=== PATIENT | female | born 1960 ===

== ENCOUNTER 2018-03-11 13:52 | Emergency (ER) | payer MEDICAID ==
[2018-03-11 14:08] VITALS: RESP 16; TEMP 97.9
[2018-03-11] MEDS ORDERED: Amoxicillin-Clav 875-125 mg Tab PO STA (15:25)
[2018-03-11] MEDS ORDERED: Albuterol 0.083% Inhal Sol (2.5 mg/3 mL) UD INH STA (15:25)
--- NOTE | 2018-03-11 15:37 | C.PDOC ---
History Of Present Illness 57 year old female patient with hx of IDDM comes in for evaluation of nasal congestion with left ear ache for the past 3 days. Patient reported she couldn' t sleep last night because she "can't breathe" due to the congestion. Patient states she took over the counter antihistamine with no improvements. Patient denies fever, chills, headache, dizziness, vertigo, ear discharge, sore throat, cough, and SOB. HPI: Influenza Time Seen by Provider: 03/11/18 14:02 Chief Complaint: Cough, Cold, Congestion History Per: Patient Exam Limitations: no limitations Onset/Duration Of Symptoms: Days, Gradual Symptoms include: nasal congestion, other (left ear ache; no vertigo, ear discharge, and chills). denies: fever, headache, sore throat, cough Past Medical History Reviewed: Historical Data, Nursing Documentation, Vital Signs Vital Signs: Last Vital Signs Temp 97.9 F 03/11/18 14:05 Pulse 87 03/11/18 14:05 Resp 16 03/11/18 14:05 BP 171/85 H 03/11/18 14:05 Pulse Ox 99 03/11/18 14:05 - Medical History PMH: Diabetes, HTN, Hypercholesterolemia Family History: States: Unknown Family Hx - Social History Hx Alcohol Use: No Hx Substance Use: No - Immunization History Hx Tetanus Toxoid Vaccination: No Hx Influenza Vaccination: No Hx Pneumococcal Vaccination: No Review Of Systems Except As Marked, All Systems Reviewed And Found Negative. Constitutional: Negative for: Fever, Chills, Other (headache) ENT: Positive for: Ear Pain (ear ache), Other (nasal congestion). Negative for : Ear Discharge, Throat Pain Respiratory: Negative for: Cough, Shortness of Breath Neurological: Negative for: Dizziness, Other (vertigo) Physical Exam - Physical Exam Appears: Well, Non-toxic, No Acute Distress Skin: Normal Color, Warm, Dry, No Rash, No Ecchymosis Head: Normacephalic Eye(s): bilateral: PERRL Ear(s): Bilateral: Normal Nose: No Flaring, Discharge (clear with L>R nasal congestion), Other ( tenderness over bilateral paranasal area L>R. No edmea, no erythema.) Oral Mucosa: Moist, No Drooling Tongue: Normal Appearing Lips: Normal Appearing Throat: No Erythema, No Drooling Neck: Trachea Midline, No Midline Cervical Tenderness, No Paracervical Tenderness, Supple, Other ((-) meningeal sign) Chest: Symmetrical, No Deformity, No Tenderness Cardiovascular: Rhythm Regular, No Murmur, No JVD Respiratory: No Decreased Breath Sounds, No Accessory Muscle Use, No Stridor, No Wheezing Gastrointestinal/Abdominal: Soft, No Tenderness, No Distention, No Guarding Back: No CVA Tenderness Extremity: Normal ROM, No Tenderness, No Deformity Neurological/Psych: Oriented x3, Normal Speech, Normal Motor, Normal Sensation, Normal Reflexes - ECG O2 Sat by Pulse Oximetry: 99 (RA) Pulse Ox Interpretation: Normal - Progress ED Course And Treament: Impression: 57 year old female with nasal congestion with ear ache. Plans: -- Albuterol -- Amoxicillin -- predniSONE On re-eval, pt is afebrile, hemodynamically stable. Non-toxic. Tolerate PO well in ED. PulseOx 99% on RA. ENT: (+) exam c/w acute siniusitis. Uvula midline, no edema. Neck: Supple, (-) JVD. Lungs: CTA B/L, BS equal B/L. Abd: Soft, non-tender. Neurologically intact.FSBS 150. Pt advised on course of ds. ref. to f/u with PMD, ENT In 2-3 days for re- evaluation. return to ED if any worsening or new changes. Disposition Counseled Patient/Family Regarding: Diagnosis, Need For Followup, Rx Given - Disposition Referrals: Stephanie Rice MD [Non-Staff] - Disposition: HOME/ ROUTINE Disposition Time: 15:49 Condition: STABLE Additional Instructions: Encourage fluids Take medication as prescribed Follow up with PMD in 2-3 days for re-evaluation. return if any worsening or new changes. Prescriptions: Amoxicillin/Clavulanate [Augmentin 875 MG-125 MG] 1 tab PO BID #14 tab Loratadine [Claritin] 10 mg PO DAILY #20 tab Prednisone [Deltasone] 40 mg PO DAILY #8 tablet Instructions: Sinusitis in Adults Forms: Pressy (Burmese) Print Language: WELSH - Clinical Impression Clinical Impression: Sinusitis - PA / ACCIDENT REPORT CLERK / Resident Statement / has reviewed & agrees with the documentation as recorded. - Scribe Statement The provider has reviewed the documentation as recorded by the Vicki Boyce Do All medical record entries made by the Pedroibodilia were at my direction and personally dictated by me. I have reviewed the chart and agree that the record accurately reflects my personal performance of the history, physical exam, medical decision making, and the department course for this patient. I have also personally directed, reviewed, and agree with the discharge instructions and disposition.
[2018-03-11] MEDS ORDERED: Amoxicillin-Clav 875-125 mg Tab PO ONE (15:41)
[2018-03-11] MEDS ORDERED: Albuterol 0.083% Inhal Sol (2.5 mg/3 mL) UD ONE (15:42)
[2018-03-11 16:12] VITALS: BP 156/85; PULSE 85; O2SAT 98
== END 2018-03-11 16:11 | disposition home or self-care (01) ==
LOC: C.ER 13:52
DX: J32.9 Chronic sinusitis, unspecified (principal); E11.9 Type 2 diabetes mellitus without complications; Z79.4 Long term (current) use of insulin

== ENCOUNTER 2018-04-24 07:41 | Observation (INO) | payer MEDICAID ==
[2018-04-24] MEDS ORDERED: Sodium Chloride 0.9% 500 ML IV ONE ×2 (08:14→08:35)
[2018-04-24 08:35] LABS: BASO # 0.1 K/uL (0.0-0.2); BASO % 0.9 % (0.0-2.0); EOS # 0.3 K/uL (0.0-0.7); EOS % 2.7 % (0.0-4.0); HEMOGLOBIN 11.5 g/dL (11.0-16.0); LYMPH # 1.7 K/uL (1.0-4.3); LYMPH % 16.5 % (20.0-40.0); MEAN CELL VOLUME 83.7 fL (81.0-99.0); MEAN CORPUSCULAR HGB CONC 34.6 g/dL (33.0-37.0); MEAN PLATELET VOLUME 9.3 fL (7.2-11.7); MONO # 0.6 K/uL (0.0-0.8); MONO % 5.7 % (0.0-10.0); NEUT # 7.8 K/uL (1.8-7.0); NEUT % 74.2 % (50.0-75.0); RBC 3.96 Mil/uL (3.80-5.20); RED CELL DISTRIBUTION WIDTH 13.6 % (11.5-14.5); WHITE BLOOD COUNT 10.5 K/uL (4.8-10.8)
[2018-04-24 08:52] LABS: SQUAMOUS EPITHIAL 1 /hpf (0-5); URINE BILIRUBIN NEGATIVE (NEGATIVE); URINE BLOOD 1+ (NEGATIVE); URINE CLARITY Clear (Clear); URINE COLOR Straw (YELLOW); URINE GLUCOSE (UA) 1+ mg/dL (Normal); URINE LEUKOCYTE ESTERASE NEG Leu/uL (Negative); URINE PROTEIN 2+ mg/dL (NEGATIVE); URINE UROBILINOGEN NORMAL mg/dL (0.2-1.0)
[2018-04-24 09:33] LABS: B-TYPE NATRIURETIC PEPTIDE 195 pg/mL (0-900)
[2018-04-24 09:34] LABS: ALB/GLOB RATIO 1.1 (1.0-2.1); ALT/SGPT 23 U/L (9-52); AST/SGOT 18 U/L (14-36); BLOOD UREA NITROGEN 26 mg/dL (7-17); CALCIUM 9.6 mg/dl (8.6-10.4); CK-MB 1.75 ng/mL (0.0-3.38); GFR NON-AFRICAN AMERICAN > 60; LIPASE 225 U/L (23-300)
--- NOTE | 2018-04-24 09:44 | RAD ---
Date of service: 04/24/2018 HISTORY: SOB COMPARISON: No prior. TECHNIQUE: Chest PA and lateral FINDINGS: LUNGS: Minor bibasilar atelectasis. PLEURA: No significant pleural effusion identified. No pneumothorax apparent. CARDIOVASCULAR: Cardiomegaly. OSSEOUS STRUCTURES: No significant abnormalities. VISUALIZED UPPER ABDOMEN: Normal. OTHER FINDINGS: None. IMPRESSION: Minor bibasilar atelectasis.
--- NOTE | 2018-04-24 10:04 | C.PDOC ---
History Of Present Illness 57 year old female PMHx significant for diabetes, hypertension, hyperlipidemia and anxiety presents to the ED complaining of mid-sternal chest pressure that started last night and worsened today. Associated with nasal congestion and 1 episode of vomiting. She was recently treated for a sinus infection on 03/11. Patient states she was prescribed two antibiotics at that time, but did not finish the entire course of either antibiotic secondary to elevated sugar. Patient had a stress test last year that was normal. Daughter at bedside is translating for patient. Denies sob, headache, neck pain, fever, visual changes , or abdominal pain. Time Seen by Provider: 04/24/18 07:45 Chief Complaint (Nursing): Shortness Of Breath History Per: Patient, Family (daughter translating for patient) History/Exam Limitations: no limitations Onset/Duration Of Symptoms: Days Quality: Pressure Associated Symptoms: Chest Pain Past Medical History Reviewed: Historical Data, Nursing Documentation, Vital Signs Vital Signs: Last Vital Signs Temp 97.7 F 04/24/18 16:00 Pulse 89 04/24/18 16:00 Resp 18 04/24/18 16:00 BP 180/90 H 04/24/18 16:00 Pulse Ox 100 04/24/18 16:00 - Medical History PMH: Diabetes, HTN, Hypercholesterolemia Other Surgeries: Tubal ligation Family History: States: Unknown Family Hx - Social History Hx Tobacco Use: No Hx Alcohol Use: No Hx Substance Use: No - Immunization History Hx Tetanus Toxoid Vaccination: No Hx Influenza Vaccination: No Hx Pneumococcal Vaccination: No Review Of Systems Except As Marked, All Systems Reviewed And Found Negative. Constitutional: Negative for: Fever Eyes: Negative for: Vision Change ENT: Positive for: Nose Congestion Cardiovascular: Positive for: Chest Pain. Negative for: Palpitations Respiratory: Negative for: Cough, Wheezing Gastrointestinal: Positive for: Vomiting. Negative for: Abdominal Pain, Diarrhea, Constipation, Other (GI bleed) Neurological: Negative for: Weakness, Numbness, Incoordination, Headache, Dizziness Physical Exam - Physical Exam Appears: Non-toxic, No Acute Distress, Other (anxious) Skin: Normal Color, Warm, Dry Head: Atraumatic, Normacephalic Eye(s): bilateral: Normal Inspection, EOMI Nose: Other (nasal congestion and paranasal sinus tenderness) Oral Mucosa: Moist Throat: Normal, No Erythema, No Exudate Neck: Normal ROM, Supple Chest: Symmetrical, Tenderness (mid-sternal tenderness on palpation) Cardiovascular: Rhythm Regular Respiratory: Normal Breath Sounds, No Rales, No Rhonchi, No Wheezing Gastrointestinal/Abdominal: Soft, Tenderness (to epigastrium), No Guarding, No Rebound Extremity: Normal ROM Extremity: Bilateral: Atraumatic, Normal Color And Temperature, Normal ROM Pulses: Left Dorsalis Pedis: Normal, Right Dorsalis Pedis: Normal Neurological/Psych: Oriented x3, Normal Speech, Normal Cognition, Other (No focal deficits) ED Course And Treatment - Laboratory Results Result Diagrams: 04/24/18 08:27 04/24/18 08:27 O2 Sat by Pulse Oximetry: 100 (RA) Pulse Ox Interpretation: Normal - Other Rad CXR X-Ray: Read By Radiologist Interpretation: Accession No. : [id number]. Patient Name / ID : ERASMO Florez / [id number]. Exam Date : 04/24/2018 08:23:35 ( Approved ). Study Comment : Sex / Age : F / 57Y. Creator : Minesh Issa MD. Dictator : Mini Shifter : Ad Setter : Minesh Issa MD. Approver2 : Report Date : 04/24/2018 09:43:16. My Comment : . Date of service: 04/24/2018. HISTORY : SOB. COMPARISON: No prior. TECHNIQUE: Chest PA and lateral. FINDINGS: LUNGS: Minor bibasilar atelectasis. PLEURA: No significant pleural effusion identified. No pneumothorax apparent. CARDIOVASCULAR: Cardiomegaly. OSSEOUS STRUCTURES: No significant abnormalities. VISUALIZED UPPER ABDOMEN: Normal. OTHER FINDINGS: None. IMPRESSION: Minor bibasilar atelectasis. Progress Note: Labs ordered including cardiac enzymes. Chest x-ray and EKG obtained. Administered IVF hydration. Labs reviewed. Case discussed with Dr. Ye, agreed upon plan and admission. Patient treated with Afrin spray and IV Rocephin. Disposition - Disposition Disposition: HOSPITALIZED Disposition Time: 12:00 Condition: STABLE - Clinical Impression Clinical Impression: Sinusitis, Chest pain - PA / C ARCHITECT / Resident Statement MD/DO has reviewed & agrees with the documentation as recorded. - Scribe Statement The provider has reviewed the documentation as recorded by the Scribe (Sandie Adhikari) All medical record entries made by the Scribe were at my direction and personally dictated by me. I have reviewed the chart and agree that the record accurately reflects my personal performance of the history, physical exam, medical decision making, and the department course for this patient. I have also personally directed, reviewed, and agree with the discharge instructions and disposition.
[2018-04-24] MEDS ORDERED: cefTRIAXone IV 1 gm in Dextros 50 ML IV ONE (10:49)
[2018-04-24] MEDS ORDERED: Oxymetazoline 0.05% Nasal Spray (30 ml) NS STA (10:50)
[2018-04-24] MEDS ORDERED: Oxymetazoline 0.05% Nasal Spray (30 ml) NS ONE (11:26)
--- NOTE | 2018-04-24 19:18 | CP.PCM.HP ---
History of Present Illness - History of Present Illness History of Present Illness: 67-year-old F with PMH of DM, HTN, HLD, anxiety presents to ED with C/oh midsternal chest pressure started last night. Also admits nasal congestion and one episode of vomiting. PMH of sinus infection on 03/11, prescribed 2 antibiotics at that time, admits did not finish the entire course. Translation done by Dr. Sakshi Jean OB/palpitation/abdominal pain/fever/dizziness/diarrhea / constipation headache. Past Patient History - Infectious Disease Hx of Infectious Diseases: None - Past Medical History & Family History Past Medical History?: Yes - Past Social History Smoking Status: Never Smoked - CARDIAC Hx Hypercholesterolemia: Yes Hx Hypertension: Yes - HEENT Hx Cataracts: Yes - ENDOCRINE/METABOLIC Hx Diabetes Mellitus Type 1: Yes - MUSCULOSKELETAL/RHEUMATOLOGICAL Hx Falls: No - PSYCHIATRIC Hx Substance Use: No - SURGICAL HISTORY Hx Tubal Ligation: Yes - ANESTHESIA Hx Anesthesia: Yes Hx Anesthesia Reactions: No Meds Allergies/Adverse Reactions: Allergies Allergy/AdvReac Type Severity Reaction Status Date / Time No Known Allergies Allergy Verified 04/24/18 07:53 Physical Exam - Constitutional Appears: Well - Head Exam Head Exam: ATRAUMATIC, NORMAL INSPECTION, NORMOCEPHALIC - Eye Exam Eye Exam: EOMI, Normal appearance, PERRL Pupil Exam: NORMAL ACCOMODATION, PERRL - ENT Exam ENT Exam: Mucous Membranes Moist, Normal Exam - Neck Exam Neck exam: Positive for: Normal Inspection - Respiratory Exam Respiratory Exam: Decreased Breath Sounds - Cardiovascular Exam Cardiovascular Exam: REGULAR RHYTHM, +S1, +S2 - GI/Abdominal Exam GI & Abdominal Exam: Diminished Bowel Sounds, Soft - Rectal Exam Rectal Exam: Deferred Results - Vital Signs Recent Vital Signs: Last Vital Signs Temp 97.7 F 04/24/18 16:00 Pulse 92 H 04/24/18 18:00 Resp 19 04/24/18 18:00 BP 154/76 H 04/24/18 18:00 Pulse Ox 100 04/24/18 18:06 - Labs Result Diagrams: 04/25/18 05:59 04/25/18 05:59 Labs: Laboratory Results - last 24 hr 04/24/18 04/24/18 04/24/18 08:17 08:27 08:27 WBC 10.5 RBC 3.96 Hgb 11.5 D Hct 33.1 L MCV 83.7 MCH 29.0 MCHC 34.6 RDW 13.6 Plt Count 300 MPV 9.3 Neut % (Auto) 74.2 Lymph % (Auto) 16.5 L Beckham % (Auto) 5.7 Eos % (Auto) 2.7 Baso % (Auto) 0.9 Neut # (Auto) 7.8 H Lymph # (Auto) 1.7 Beckham # (Auto) 0.6 Eos # (Auto) 0.3 Baso # (Auto) 0.1 Sodium 142 Potassium 4.6 Chloride 107 Carbon Dioxide 25 Anion Gap 15 BUN 26 H Creatinine 0.7 Est GFR ( Amer) > 60 Est GFR (Non-Af Amer) > 60 POC Glucose (mg/dL) 170 H Random Glucose 194 H Calcium 9.6 Total Bilirubin 0.3 AST 18 ALT 23 Alkaline Phosphatase 114 Total Creatine Kinase 188 H CK-MB (Mass) 1.75 Troponin I < 0.0120 NT-Pro-B Natriuret Pep 195 Total Protein 7.7 Albumin 4.0 Globulin 3.6 Albumin/Globulin Ratio 1.1 Lipase 225 Urine Color Urine Clarity Urine pH Ur Specific Allyn Urine Protein Urine Glucose (UA) Urine Ketones Urine Blood Urine Nitrate Urine Bilirubin Urine Urobilinogen Ur Leukocyte Esterase Urine WBC (Auto) Urine RBC (Auto) Ur Squamous Epith Cells 04/24/18 04/24/18 08:36 16:20 WBC RBC Hgb Hct MCV MCH MCHC RDW Plt Count MPV Neut % (Auto) Lymph % (Auto) Beckham % (Auto) Eos % (Auto) Baso % (Auto) Neut # (Auto) Lymph # (Auto) Beckham # (Auto) Eos # (Auto) Baso # (Auto) Sodium Potassium Chloride Carbon Dioxide Anion Gap BUN Creatinine Est GFR ( Amer) Est GFR (Non-Af Amer) POC Glucose (mg/dL) 143 H Random Glucose Calcium Total Bilirubin AST ALT Alkaline Phosphatase Total Creatine Kinase CK-MB (Mass) Troponin I NT-Pro-B Natriuret Pep Total Protein Albumin Globulin Albumin/Globulin Ratio Lipase Urine Color Straw Urine Clarity Clear Urine pH 7.0 Ur Specific Allyn 1.011 Urine Protein 2+ H Urine Glucose (UA) 1+ Urine Ketones Negative Urine Blood 1+ H Urine Nitrate Negative Urine Bilirubin Negative Urine Urobilinogen Normal Ur Leukocyte Esterase Neg Urine WBC (Auto) 6 H Urine RBC (Auto) 11 H Ur Squamous Epith Cells 1 Assessment & Plan (1) Chest pain Status: Acute (2) Sinusitis Status: Acute (3) Hyperglycemia Status: Acute (4) UTI (urinary tract infection) Status: Acute (5) Uncontrolled diabetes mellitus Status: Acute (6) Uncontrolled hypertension Status: Acute - Assessment and Plan (Free Text) Plan: Patient seen and examined bedside Chest x-ray: minor bibasilar atelectasis. Cardiomegaly. Labs: cardiac enzyme, CBC, CMP. EKG Stress test done last year- normal. Afrin spray IV Rocephin Other management as ordered
[2018-04-24] MEDS: Enoxaparin 40 mg Syringe SC SCH (20:36)
[2018-04-24 21:18] LABS: CK-MB 0.98 ng/mL (0.0-3.38)
[2018-04-24] MEDS ORDERED: Labetalol 25mg/5ml Syringe IVP PRN (21:46)
[2018-04-24] MEDS ORDERED: Metoprolol 1 mg/ml Inj IVP ONE (21:49)
[2018-04-24] MEDS: (Novolog) Insulin Aspart, Recombinant 100 u/ml 10 ml vial SC SCH (22:26)
[2018-04-25 06:07] LABS: HEMOGLOBIN 11.4 g/dL (11.0-16.0); MEAN CELL VOLUME 82.8 fL (81.0-99.0); MEAN PLATELET VOLUME 9.5 fL (7.2-11.7); RBC 3.93 Mil/uL (3.80-5.20); RED CELL DISTRIBUTION WIDTH 13.8 % (11.5-14.5); WHITE BLOOD COUNT 8.7 K/uL (4.8-10.8)
[2018-04-25 06:30] LABS: ALB/GLOB RATIO 1.1 (1.0-2.1); ALBUMIN 3.6 g/dL (3.5-5.0); ALT/SGPT 23 U/L (9-52); AST/SGOT 16 U/L (14-36); BLOOD UREA NITROGEN 20 mg/dL (7-17); CALCIUM 9.2 mg/dl (8.6-10.4); GFR NON-AFRICAN AMERICAN > 60
[2018-04-25] MEDS: (Novolog) Insulin Aspart, Recombinant 100 u/ml 10 ml vial SC SCH ×4 (08:26→22:08)
[2018-04-25] MEDS: Enoxaparin 40 mg Syringe SC SCH (10:24)
[2018-04-25] MEDS: Pantoprazole 40 mg EC Tab PO SCH (10:30)
[2018-04-25 18:33] VITALS: RESP 20
--- NOTE | 2018-04-25 19:23 | CP.PCM.PN ---
Subjective - Date & Time of Evaluation Date of Evaluation: 04/25/18 Time of Evaluation: 13:15 - Subjective Subjective: clinically same Objective - Vital Signs/Intake and Output Vital Signs (last 24 hours): Temp Pulse Resp BP Pulse Ox 98.4 F 90 20 107/68 97 04/25/18 15:06 04/25/18 17:56 04/25/18 15:06 04/25/18 17:56 04/25/18 15:06 Intake and Output: 04/25/18 04/26/18 18:59 06:59 Intake Total 1430 Output Total 950 Balance 480 - Medications Medications: Current Medications Amlodipine Besylate (Norvasc) 10 mg PO DAILY REPLACED BY [facility] Last Admin: 04/25/18 10:25 Dose: 10 mg Aspirin (Aspirin) 325 mg PO DAILY REPLACED BY [facility] Last Admin: 04/25/18 10:24 Dose: 325 mg Enoxaparin Sodium (Lovenox) 40 mg SC DAILY REPLACED BY [facility] Last Admin: 04/25/18 10:24 Dose: 40 mg Ceftriaxone Sodium 1 gm/ (Sodium Chloride) 100 mls @ 100 mls/hr IVPB Q24H REPLACED BY [facility] PRN Reason: Protocol Last Admin: 04/25/18 11:16 Dose: 100 mls/hr Insulin Aspart (Novolog) 0 unit SC ACHS REPLACED BY [facility] PRN Reason: Protocol Last Admin: 04/25/18 17:36 Dose: 1 u Labetalol HCl (Trandate) 200 mg PO TID REPLACED BY [facility] Last Admin: 04/25/18 17:53 Dose: 200 mg Pantoprazole Sodium (Protonix Ec Tab) 40 mg PO DAILY REPLACED BY [facility] Last Admin: 04/25/18 10:30 Dose: 40 mg - Labs Labs: 04/25/18 05:59 04/25/18 05:59 - Constitutional Appears: Well - Head Exam Head Exam: ATRAUMATIC, NORMAL INSPECTION, NORMOCEPHALIC - Eye Exam Eye Exam: EOMI, Normal appearance, PERRL Pupil Exam: NORMAL ACCOMODATION, PERRL - ENT Exam ENT Exam: Mucous Membranes Moist, Normal Exam - Neck Exam Neck Exam: Full ROM, Normal Inspection. absent: Lymphadenopathy - Respiratory Exam Respiratory Exam: Decreased Breath Sounds - Cardiovascular Exam Cardiovascular Exam: REGULAR RHYTHM, +S1, +S2 - GI/Abdominal Exam GI & Abdominal Exam: Soft, Diminished Bowel Sounds - Rectal Exam Rectal Exam: Deferred Assessment and Plan (1) Chest pain Status: Acute (2) Sinusitis Status: Acute (3) Hyperglycemia Status: Acute (4) UTI (urinary tract infection) Status: Acute (5) Uncontrolled diabetes mellitus Status: Acute (6) Uncontrolled hypertension Status: Acute
--- NOTE | 2018-04-25 19:41 | CP.PCM.PCO ---
Physician Communication Note - Physician Communication Note Physician Communication Note: Patient see Dr Sandra as outpatient. Pls consult Dr Sandra group
[2018-04-26 07:59] VITALS: TEMP 97.7; O2SAT 98
[2018-04-26] MEDS: (Novolog) Insulin Aspart, Recombinant 100 u/ml 10 ml vial SC SCH ×2 (08:39→12:30)
--- NOTE | 2018-04-26 09:21 | CARD ---
APPROVED REPORT Date of service: 04/24/2018 EKG Measurement Heart [id number] <Conclusion> Normal sinus rhythm Voltage criteria for left ventricular hypertrophy Abnormal ECG
--- NOTE | 2018-04-26 09:24 | CT ---
CT sinuses History: Sinusitis. Comparison: None available. Technique: Multiple contiguous axial images were performed through the paranasal sinuses without the use of intravenous contrast. Subsequently, sagittal and coronal reformatted images were obtained. This CT exam was performed using one or more of the following dose reduction techniques: Automated exposure control, adjustment of the mA and/or kV according to patient size, and/or use of iterative reconstruction technique. Findings: Mild mucosal thickening of the left frontal, anterior to mid ethmoid, and sphenoid sinuses. Remainder of the paranasal sinuses appear preserved. Mastoid air cells appear preserved. Visualized orbital globes appear preserved. Moderate mucosal thickening and hypertrophy of the middle and inferior nasal turbinates. Bilateral ostiomeatal units appear preserved. Rightward nasal septal deviation. Impression: Mild sinus mucosal disease as above. These findings were preliminarily reported at 7:53 p.m. on 04/25/[address] Puma Zepeda from [facility].
[2018-04-26] MEDS: Enoxaparin 40 mg Syringe SC SCH (10:14)
[2018-04-26] MEDS: Pantoprazole 40 mg EC Tab PO SCH (10:14)
--- NOTE | 2018-04-26 11:59 | CP.PCM.CON ---
History of Present Illness - History of Present Illness History of Present Illness: 67-year-old F with PMH of DM, HTN, HLD, anxiety presents to ED with C/oh midsternal chest pressure started last night. Also admits nasal congestion and one episode of vomiting. PMH of sinus infection on 03/11, prescribed 2 antibiotics at that time, Pt said that the chest pain occurred at rest, and resolved after she arrived at the hospital. She gets chest pain two times a month, and had a normal stress test last year, ordered and reviewed by Dr Sandra, and no coronary intervention was advised. Here at the hospital, tni are normal three times, and ecg shows no ischemic changes. pt has been ambulatory lately, without chest pain or [place]. Review of Systems - Review of Systems All systems: reviewed and no additional remarkable complaints except (as above, otherwise nregative) Past Patient History - Infectious Disease Hx of Infectious Diseases: None - Past Medical History & Family History Past Medical History?: Yes - Past Social History Smoking Status: Never Smoked - CARDIAC Hx Hypercholesterolemia: Yes Hx Hypertension: Yes - HEENT Hx Cataracts: Yes - ENDOCRINE/METABOLIC Hx Diabetes Mellitus Type 1: Yes - MUSCULOSKELETAL/RHEUMATOLOGICAL Hx Falls: No - PSYCHIATRIC Hx Substance Use: No - SURGICAL HISTORY Hx Tubal Ligation: Yes - ANESTHESIA Hx Anesthesia: Yes Hx Anesthesia Reactions: No Meds Allergies/Adverse Reactions: Allergies Allergy/AdvReac Type Severity Reaction Status Date / Time No Known Allergies Allergy Verified 04/24/18 07:53 - Medications Medications: Current Medications Amlodipine Besylate (Norvasc) 10 mg PO DAILY [facility] Last Admin: 04/26/18 10:14 Dose: 10 mg Aspirin (Aspirin) 325 mg PO DAILY [facility] Last Admin: 04/26/18 10:14 Dose: 325 mg Enoxaparin Sodium (Lovenox) 40 mg SC DAILY [facility] Last Admin: 04/26/18 10:14 Dose: 40 mg Ceftriaxone Sodium 1 gm/ (Sodium Chloride) 100 mls @ 100 mls/hr IVPB Q24H [facility] PRN Reason: Protocol Last Admin: 04/26/18 11:34 Dose: Not Given Insulin Aspart (Novolog) 0 unit SC ACHS [facility] PRN Reason: Protocol Last Admin: 04/26/18 08:39 Dose: 2 unit Labetalol HCl (Trandate) 200 mg PO TID [facility] Last Admin: 04/26/18 10:14 Dose: 200 mg Pantoprazole Sodium (Protonix Ec Tab) 40 mg PO DAILY [facility] Last Admin: 04/26/18 10:14 Dose: 40 mg Physical Exam - Constitutional Appears: Well - Head Exam Head Exam: ATRAUMATIC - Eye Exam Eye Exam: EOMI - ENT Exam ENT Exam: Mucous Membranes Moist - Neck Exam Neck exam: Positive for: Full Rom - Respiratory Exam Respiratory Exam: Clear to Auscultation Bilateral - Cardiovascular Exam Cardiovascular Exam: REGULAR RHYTHM - GI/Abdominal Exam GI & Abdominal Exam: Normal Bowel Sounds - Exam External exam: NORMAL EXTERNAL EXAM - Extremities Exam Extremities exam: Positive for: normal inspection - Back Exam Back exam: NORMAL INSPECTION - Neurological Exam Neurological exam: Alert, Normal Gait, Reflexes Normal - Psychiatric Exam Psychiatric exam: Normal Affect - Skin Skin Exam: Normal Color - Additional Findings Additional findings: Pt points to the location of her pain over the left lower ribs. Pressing on that area reproduces the patients characteristic pain. Results - Vital Signs Recent Vital Signs: Last Vital Signs Temp 97.7 F 04/26/18 07:00 Pulse 92 H 04/26/18 10:13 Resp 20 04/26/18 07:00 BP 115/73 04/26/18 10:13 Pulse Ox 98 04/26/18 07:00 - Labs Result Diagrams: 04/25/18 05:59 04/25/18 05:59 Labs: Laboratory Results - last 24 hr 04/25/18 04/25/18 04/26/18 16:29 21:06 06:09 POC Glucose (mg/dL) 154 H 187 H 209 H - EKG Data EKG Interpreted by: Myself EKG shows normal: Sinus rhythm Rate: Normal (no ischemic changes) Assessment & Plan - Assessment and Plan (Free Text) Assessment: 1. Although the patient has cardiac risk factors, her pain occurred with rest, and TNI, ecg are normal. Pressing on the patients left lower ribs, the area that she points to, easily reproduces the patients characteristic pain. The chest pain appears to be non anginal, and the patient is reassured. No additional CV workup is advised at this time.
[2018-04-26 13:24] VITALS: BP 113/71; PULSE 94
--- NOTE | 2018-04-26 14:57 | CP.PCM.PN ---
Subjective - Date & Time of Evaluation Date of Evaluation: 04/26/18 Time of Evaluation: 14:57 - Subjective Subjective: - SEGUIMIENTO CON EL DR. Janice VERONICA O EL DOCTOR PRIMARIO EN LA OFICINA EN EL PLAZO DE 1 SEMANA --- LLAME A LA OFICINA PARA NOMBRAMIENTO. - SEGUIMIENTO CON EL DR. HAYES EN LA OFICINA EN EL PLAZO DE 5-7 PATRICK --- LLAME A LA OFICINA PARA CHIU KRYSTYNA. -CONTINUAR LOS MEDICAMENTOS CASEROS DOMINIQUE HABITUALMENTE. -NUEVAS PRESCRIPCIONES INCLUYEN LO SIGUIENTE --- TOME EXACTAMENTE DOMINIQUE SE PRESCRIBE --- 2 SEMANAS DE SUMINISTRO DADO A USTED; CUANDO ESTS DEBIDO PARA RECARGAR, CONTACTE A CHIU MDICO: 1) NORVASC 10 MG (PARA LA PRESIN ARTERIAL) --- MALORIE 1 TABLETA POR BOCA ZORAIDA VEZ AL DA 2) LABETALOL 200 MG (PARA LA PRESIN ARTERIAL) --- MALORIE 1 TABLETA POR BOCA LOBO VECES AL DA 3) FLONASE (PARA CONGESTIN NASAL) --- UTILIZA 1 PULVERIZAR DOS VECES AL DA SEG N SEA NECESARIO. 4) AUGMENTIN (ANTIBITICO) --- TOME 1 TABLETA POR LA BOCA CADA 12 HORAS POR 5 D . -Para otras inquietudes o preguntas, contctese con el DR. VERONICA. -FOLLOW UP WITH DR. Janice VERONICA OR YOU PRIMARY DOCTOR IN THE OFFICE WITHIN 1 WEEK-- -CALL THE OFFICE FOR APPOINTMENT. -FOLLOW UP WITH DR. HAYES IN THE OFFICE WITHIN 5-7 DAYS---CALL THE OFFICE FOR APPOINTMENT. -CONTINUE HOME MEDICATIONS USUAL. -NEW PRESCRIPTIONS INCLUDE THE FOLLOWING---TAKE EXACTLY PRESCRIBED---2 WEEK SUPPLY GIVEN TO YOU; WHEN YOU ARE DUE FOR REFILLS, CONTACT YOUR DOCTOR: 1) NORVASC 10 MG (FOR BLOOD PRESSURE)---TAKE 1 TABLET BY MOUTH ONCE A DAY 2) LABETALOL 200 MG (FOR BLOOD PRESSURE)---TAKE 1 TABLET BY MOUTH THREE TIMES A DAY 3) FLONASE (FOR NASAL CONGESTION)---USE 1 SPRAY TWICE A DAY NEEDED. 4) AUGMENTIN (ANTIBIOTIC)---TAKE 1 TABLET BY MOUTH EVERY 12 HOURS FOR 5 DAYS. -FOR FURTHER CONCERNS OR QUESTIONS, CONTACT DR. VERONICA. Objective - Vital Signs/Intake and Output Vital Signs (last 24 hours): Temp Pulse Resp BP Pulse Ox 97.7 F 94 H 20 113/71 98 04/26/18 07:00 04/26/18 13:24 04/26/18 07:00 04/26/18 13:24 04/26/18 07:00 Intake and Output: 04/26/18 04/26/18 06:59 18:59 Intake Total 480 400 Balance 480 400 - Medications Medications: Current Medications Amlodipine Besylate (Norvasc) 10 mg PO DAILY [facility] Last Admin: 04/26/18 10:14 Dose: 10 mg Aspirin (Aspirin) 325 mg PO DAILY [facility] Last Admin: 04/26/18 10:14 Dose: 325 mg Enoxaparin Sodium (Lovenox) 40 mg SC DAILY [facility] Last Admin: 04/26/18 10:14 Dose: 40 mg Ceftriaxone Sodium 1 gm/ (Sodium Chloride) 100 mls @ 100 mls/hr IVPB Q24H NILESH PRN Reason: Protocol Last Admin: 04/26/18 11:34 Dose: Not Given Insulin Aspart (Novolog) 0 unit SC ACHS NILESH PRN Reason: Protocol Last Admin: 04/26/18 12:30 Dose: 1 unit Labetalol HCl (Trandate) 200 mg PO TID [facility] Last Admin: 04/26/18 13:25 Dose: 200 mg Pantoprazole Sodium (Protonix Ec Tab) 40 mg PO DAILY [facility] Last Admin: 04/26/18 10:14 Dose: 40 mg - Labs Labs: 04/25/18 05:59 04/25/18 05:59
== END 2018-04-26 16:05 | disposition home or self-care (01) ==
LOC: C.ER 07:41 → C.9E 10:50 → C.9I 14:00 → C.6T 04-25 11:47
PROVIDERS: ADMIT Internal Medicine Nephrology; ATTEND Internal Medicine Nephrology
DX: R07.89 Other chest pain (principal); J32.8 Other chronic sinusitis; J34.2 Deviated nasal septum; E78.5 Hyperlipidemia, unspecified; I10 Essential (primary) hypertension; N39.0 Urinary tract infection, site not specified; Z79.4 Long term (current) use of insulin; E10.65 Type 1 diabetes mellitus with hyperglycemia
CPT/HCPCS: 70486; 71046; 80053; 81001; 82550; 82553; 82948; 83690; 83880; 84484; 85025; 85027; 87040; 87070; 87081; 93005; 99285; G0378; J0696; J1650; J7040

== ENCOUNTER 2018-07-04 16:14 | Emergency (ER) | payer MEDICAID ==
[2018-07-04 16:52] VITALS: TEMP 97.6
--- NOTE | 2018-07-04 17:39 | C.PDOC ---
History Of Present Illness 57 y/o female presents to the ED complaining of sinus congestion for 2 weeks. Took an [id number] decongestant and afrin spray for the last 2 weeks. Denies any fever, cough, or other associated symptoms. Seen here previously for similar complaint. Time Seen by Provider: 07/04/18 17:27 Chief Complaint (Nursing): ENT Problem History Per: Patient History/Exam Limitations: no limitations Onset/Duration Of Symptoms: Days Current Symptoms Are (Timing): Still Present Past Medical History Reviewed: Historical Data, Nursing Documentation, Vital Signs Vital Signs: Last Vital Signs Temp 97.6 F 07/04/18 16:47 Pulse 84 07/04/18 16:47 Resp 20 07/04/18 16:47 BP 139/81 07/04/18 16:47 Pulse Ox 98 07/04/18 16:47 - Medical History PMH: Diabetes, HTN, Hypercholesterolemia Surgical History: Appendectomy Family History: States: Unknown Family Hx - Social History Hx Tobacco Use: No Hx Alcohol Use: No Hx Substance Use: No - Immunization History Hx Tetanus Toxoid Vaccination: No Hx Influenza Vaccination: No Hx Pneumococcal Vaccination: No Review Of Systems Constitutional: Negative for: Fever, Chills ENT: Positive for: Nose Discharge, Nose Congestion. Negative for: Throat Pain Respiratory: Negative for: Cough, Shortness of Breath Physical Exam - Physical Exam Appears: Non-toxic, No Acute Distress, Other (On phone playing game on examination) Skin: Warm, Dry Head: Atraumatic, Normacephalic Eye(s): bilateral: Normal Inspection, PERRL, EOMI Ear(s): Bilateral: Normal Nose: Discharge (+ nasal congestion) Oral Mucosa: Moist Neck: Normal ROM, Supple Cardiovascular: Rhythm Regular, No Murmur Respiratory: Normal Breath Sounds, No Rales, No Rhonchi, No Wheezing Pulses: Left Radial: Normal, Right Radial: Normal Neurological/Psych: Oriented x3, Normal Speech ED Course And Treatment O2 Sat by Pulse Oximetry: 98 (RA) Pulse Ox Interpretation: Normal Medical Decision Making Medical Decision Making: Impression: Sinusitis Plan: Patient will be discharged home with rx for antibiotics and flonase. 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 flonase given. advise outpt fu. Disposition Counseled Patient/Family Regarding: Diagnosis, Need For Followup, Rx Given - Disposition Referrals: Pardeep De La Paz MD [Staff Provider] - Disposition: HOME/ ROUTINE Disposition Time: 17:39 Condition: STABLE Prescriptions: Amoxicillin/Clavulanate [Augmentin 875 MG-125 MG] 1 tab PO BID #20 tab Fluticasone Propionate [Flonase] 1 actuation NS DAILY #1 bottle Instructions: Sinusitis in Adults Forms: [facility] (Malay) - POA Present On Arrival: None - Clinical Impression Clinical Impression: Nasal congestion - Scribe Statement The provider has reviewed the documentation as recorded by the Vicki Adhikari Provider Attestation: All medical record entries made by the Vicki were at my direction and personally dictated by me. I have reviewed the chart and agree that the record accurately reflects my personal performance of the history, physical exam, medical decision making, and the department course for this patient. I have also personally directed, reviewed, and agree with the discharge instructions and disposition.
[2018-07-04 17:52] VITALS: BP 167/84; PULSE 74; RESP 18
[2018-07-04 20:06] VITALS: O2SAT 98
== END 2018-07-04 17:52 | disposition home or self-care (01) ==
LOC: C.ER 16:14
DX: R09.81 Nasal congestion (principal)

== ENCOUNTER 2018-11-11 11:42 | Outpatient (CLI) | payer MEDICAID | END 2018-11-11 11:43 | disposition home or self-care (01) | LOC: C.CTH 11:42 | DX: J32.2 Chronic ethmoidal sinusitis (principal) ==